=== PATIENT | female | born 1940 ===

== ENCOUNTER → 2017-05-11 | Outpatient (CLI) | payer MEDICARE ==
--- NOTE | 2017-05-11 08:28 | XR ---
EXAMINATION TYPE: XR lumbar spine 2 or 3V DATE OF EXAM: 05/11/2017 CLINICAL HISTORY: pain TECHNIQUE: Three views of the lumbar spine are submitted. COMPARISON: None. FINDINGS: There are 5 lumbar type vertebral bodies identified. The lumbar spine shows satisfactory alignment w ithout evidence of acute fracture or dislocation. Vertebral body heights are within normal limits. Moderate to severe multilevel degenerative disc space narrowing with extensive spondylotic change. Fa cet joint arthropathy noted. Curvature seen convex to the left at the thoracolumbar junction. The ov erlying soft tissue appears unremarkable. IMPRESSION: No acute fracture or dislocation is seen in the lumbar spine. ICD 10 NO FRACTURE, INITIAL EVALUATION
--- NOTE | 2017-05-11 09:12 | XR ---
EXAMINATION TYPE: XR Hip Bilateral Complete DATE OF EXAM: 05/11/2017 CLINICAL HISTORY: pain TECHNIQUE: AP and frogleg views of the bilateral hips are obtained. COMPARISON: None. FINDINGS: There is no acute fracture/dislocation evident. Moderate degenerative joint space narrowin g seen bilaterally. Hypertrophic changes supra-acetabular region and femoral neck regions right great er than left may reflect changes of femoral acetabular impingement. Spurring about the greater trocha nters bilaterally. Considering greater trochanteric bursitis. IMPRESSION: 1. There is no acute fracture or dislocation. 2. Consider HALEY on the right as noted above. ICD 10 NO FRACTURE, INITIAL EVALUATION
== END | disposition home or self-care (01) ==
LOC: RADXRMAIN 07:45
PROVIDERS: ATTEND Family Medicine
DX: M54.5 Low back pain (principal); M25.551 Pain in right hip; M25.552 Pain in left hip
CPT/HCPCS: 72100; 73521

== ENCOUNTER → 2017-05-16 | Outpatient (CLI) | payer MEDICARE ==
--- NOTE | 2017-05-16 13:38 | BD ---
EXAMINATION TYPE: MG DEXA axial skeleton. DATE OF EXAM: 05/16/2017 COMPARISON: NONE CLINICAL HISTORY: Postmenopausal female. Osteoporosis screening. Height: 4 ft 9 1/2 in Weight: 142 FRAX RISK QUESTIONS: Alcohol (3 or more units per day): NO Family History (Parent hip fracture): NO Glucocorticoids (More than 3mos): NO (Ex: prednisone, prednisolone, methylprednisolone, dexamethasone, and hydrocortisone). History of Fracture in Adulthood: NO Secondary Osteoporosis: 1. Type 1 Diabetes: NO 2. Hyperthyroidism: NO 3. Menopause before 45: YES 4. Malnutrition: NO 5. Chronic liver disease: NO Rheumatoid Arthritis: NO Current Tobacco Use: NO RISK FACTORS HISTORY OF: Active: YES Postmenopausal woman: AGE 23 Lost more than 2 inches in height since high school: YES MEDICATIONS: Thyroid Medications: YES Which medication: LEVOTHYROXINE How Lon YEAR Additional Medications: LEVOTHYROXINE METFORMIN Additional History: EXAM MEASUREMENTS: Bone mineral densitometry was performed using the [employer] System. Bone mineral density as measured about the Lumbar spine is: ----- L1-L4(G/cm2): 1.273 T Score Values are as follows: ----- L2: 1.2 ----- L3: 0.7 ----- L4: -0.2 ----- L1-L4: 0.8 Bone mineral density has: INCREASED 9.2 % since study of: 2011 Bone mineral density about the R hip (g/cm2): 1.039 Bone mineral density about the L hip (g/cm2): 0.863 T Score values are as follows: -----R Neck: 0.0 -----L Neck: -1.3 -----R Total: 0.1 -----L Total: 0.1 Bone mineral density has: DECREASED -3.6 % since study of: 2011 IMPRESSION: Osteopenia (T Score between -2.5 and -1) with regards to the left femur. There is slightly increased risk of fracture and the patient may be considered for treatment. Re-Screen 2-5 years. NOTE: T-SCORE=SD OF THE YOUNG ADULT MEAN.
== END | disposition home or self-care (01) ==
LOC: RADBDWWP 10:36
PROVIDERS: ATTEND Family Medicine
DX: M85.852 Other specified disorders of bone density and structure, left thigh (principal)
CPT/HCPCS: 77080

== ENCOUNTER → 2021-03-10 | Outpatient (CLI) | payer MEDICARE ==
--- NOTE | 2021-03-10 16:20 | US ---
EXAMINATION TYPE: US venous doppler duplex LE DATE OF EXAM: 03/10/2021 4:11 PM COMPARISON: NONE CLINICAL HISTORY: R79.1 HIGH D DIMER. Pain. SIDE PERFORMED: Bilateral TECHNIQUE: The lower extremity deep venous system is examined utilizing real time linear array sonog galen with graded compression, doppler sonography and color-flow sonography. VESSELS IMAGED: Common Femoral Vein Deep Femoral Vein Greater Saphenous Vein * Femoral Vein Popliteal Vein Small Saphenous Vein * Proximal Calf Veins (* superficial vessels) Right Leg: Negative for DVT Left Leg: Negative for DVT Grayscale, color doppler, spectral doppler imaging performed of the deep veins of the bilateral lower extremities. There is normal flow, compressibility, vascular waveforms. IMPRESSION: No ultrasound evidence for acute DVT in either lower extremity.
== END | disposition home or self-care (01) ==
LOC: RADUSWWP 15:48
PROVIDERS: ATTEND Family Medicine
DX: R79.1 Abnormal coagulation profile (principal); M79.605 Pain in left leg; M79.604 Pain in right leg
CPT/HCPCS: 93970

== ENCOUNTER → 2021-04-02 | Outpatient (CLI) | payer MEDICARE ==
--- NOTE | 2021-04-02 10:52 | MR ---
EXAMINATION TYPE: MR hip RT wo con DATE OF EXAM: 04/02/2021 COMPARISON: Bilateral hip x-rays March 04, 2021 HISTORY: Bilateral hip pain for 6 months Standard multiplanar, multisequence MRI departmental protocol Multiplanar, multisequence images of the pelvis focusing on both hips were acquired without contrast. FINDINGS: Symmetric mild to moderate axial joint space loss and moderate acetabular spurring greater on the right is present. There is additional spurring on the right at the collar of the head neck rebecca ction. Symmetric small physiologic joint effusions. No suspicious T2 signal to suggest osseous edema. No serpiginous low T1 signal to suggest avascular necrosis. Femoral head shape is maintained. Labrum appears grossly intact given limitation of nonarthrogram study. Increased fluid signal greater troch anter level bilaterally greater on the left is present. Muscle bulk in the thighs are symmetric and f elt within normal limits. No suspicious groin hernia or adenopathy. No suspicious bowel dilatation. Anteverted uterus. Bladder is poorly distended. No concerning pelvic fluid collection. No suspicious pelvic adenopathy. IMPRESSION: Increased degenerative spurring in the right hip versus opposite left side. Greater troch anteric bursitis is present though noted more prominent in the left hip.
== END | disposition home or self-care (01) ==
LOC: RADMRIMAIN 08:42
PROVIDERS: ATTEND Family Medicine
DX: M70.62 Trochanteric bursitis, left hip (principal)

== ENCOUNTER → 2021-06-29 | Outpatient (CLI) | payer MEDICARE ==
--- NOTE | 2021-06-29 22:42 | BD ---
EXAMINATION TYPE: Axial Bone Density DATE OF EXAM: 06/29/2021 COMPARISON: 2017 CLINICAL HISTORY: 81 years year old Female. ICD-10 CODE: M81.0 OSTEOPOROSIS Height: 4'10 Weight: 153 FRAX RISK QUESTIONS: Secondary Osteoporosis: 3. Menopause before 45: y RISK FACTORS HISTORY OF: Active: cane Postmenopausal woman: y Lost more than 2 inches in height since high school: y MEDICATIONS: Additional Medications: diabetes Additional History: EXAM MEASUREMENTS: Bone mineral densitometry was performed using the [employer] System. Bone mineral density as measured about the Lumbar spine is: ----- L1-L4(G/cm2): 1.343 T Score Values are as follows ----- L1: 1.9 ----- L2: 2.7 ----- L3: 1.1 ----- L4: -0.2 ----- L1-L4: 1.4 Bone mineral density has: Increased 5.7since study of: 05/16/2017 Bone mineral density about the R hip (g/cm2): 0.975 Bone mineral density about the L hip (g/cm2): 0.873 T Score values are as follows: -----R Neck: -0.5 -----L Neck: -1.2 -----R Total: 0.2 -----L Total: 0.2 Bone mineral density has: Increased 1.4since study of: 05/16/2017 FRAX: The graph provided illustrates a 11.6% chance major osteo fx and a 2.6%chance for hips probab ility for fx in 10 years time. IMPRESSION: Normal (Values between +1 and -1 indicate normal bone mass). Consider repeating this study in 5 year s or sooner if there is some new clinical indication. NOTE: T-SCORE=SD OF THE YOUNG ADULT MEAN.
--- NOTE | 2021-06-30 12:44 | MM ---
Reason for exam: screening (asymptomatic). Last mammogram was performed 9 years and 5 months ago. History: Patient is postmenopausal. Family history of breast cancer in maternal grandmother. Physical Findings: A clinical breast exam by your physician is recommended on an annual basis and results should be correlated with mammographic findings. MG 3D Screening Mammo W/Cad Bilateral CC and MLO view(s) were taken. Prior study comparison: February 14, 2012, bilateral digital screening mammo w/CAD. The breast tissue is heterogeneously dense. This may lower the sensitivity of mammography. There is an indistinct oval mass located 8 cm from the nipple in the outer quadrant, posterior position of the right breast on CC view only. There are typically benign vascular, round calcifications in both breasts. New finding and increase in number of calcifications since February 03, 2020 and January 15, 2019. ASSESSMENT: Incomplete: need additional imaging evaluation, BI-RAD 0 RECOMMENDATION: Special view mammogram of the right breast. If lesion persists on supplemental views, image directed ultrasound is recommended. [facility] will attempt to contact patient to return for supplemental views and ultrasound if indicated.
== END | disposition home or self-care (01) ==
LOC: RADMAMWWP 13:22
PROVIDERS: ATTEND Family Medicine
DX: Z12.31 Encounter for screening mammogram for malignant neoplasm of breast (principal); Z78.0 Asymptomatic menopausal state; Z80.3 Family history of malignant neoplasm of breast
CPT/HCPCS: 77063; 77067; 77080

== ENCOUNTER → 2021-07-05 | Outpatient (CLI) | payer MEDICARE ==
--- NOTE | 2021-07-05 13:58 | MM ---
Reason for exam: additional evaluation requested from abnormal screening. Last mammogram was performed less than 1 month ago. History: Patient is postmenopausal. Family history of breast cancer in maternal grandmother. Physical Findings: A clinical breast exam by your physician is recommended on an annual basis and results should be correlated with mammographic findings. MG 3D Work Up W/Cad RT CC and LM view(s) were taken of the right breast. Prior study comparison: June 29, 2021, bilateral MG 3d screening mammo w/cad. February 14, 2012, bilateral digital screening mammo w/CAD. There are scattered fibroglandular densities. Lower outer quadrant posterior right partially disperses. Ultrasound recommended. Left ultrasound lower inner quadrant for some calcifications and skin thickening. Results were given to the patient verbally at the time of the exam. ASSESSMENT: Incomplete: need additional imaging evaluation, BI-RAD 0 RECOMMENDATION: Ultrasound of both breasts. (right lower outer quadrant, left lower inner quadrant)
--- NOTE | 2021-07-06 11:51 | USB ---
Reason for exam: additional evaluation requested from abnormal screening. History: Patient is postmenopausal. Family history of breast cancer in maternal grandmother. Physical Findings: A clinical breast exam by your physician is recommended on an annual basis and results should be correlated with mammographic findings. US Breast Workup Limited NAHUM Right limited breast ultrasound including focal area of concern, retroareolar and axilla demonstrates no cystic or solid lesion seen. Left limited breast ultrasound including focal area of concern, retroareolar and axilla demonstrates no cystic or solid lesion seen. Right and left breast scanned 6-9 o'clock. Results were given to the patient verbally at the time of the exam. ASSESSMENT: Probably benign, BI-RAD 3 RECOMMENDATION: Follow-up diagnostic mammogram of both breasts in 6 months. Manage on a clinical basis with regard to any skin redness, irritation, inflammation or wounds.
== END | disposition home or self-care (01) ==
LOC: RADMAMWWP 12:54
PROVIDERS: ATTEND Family Medicine
DX: R92.1 Mammographic calcification found on diagnostic imaging of breast (principal); Z78.0 Asymptomatic menopausal state; Z80.3 Family history of malignant neoplasm of breast
CPT/HCPCS: 77065; 76642; G0279; 77061